=== PATIENT | male | born 1965 | race Caucasian/White ===

== ENCOUNTER 2016-08-30 14:00 | Emergency (ER) | payer OTHER ==
[2016-08-30 14:04] VITALS: BP 145/94
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
== END 2016-08-30 15:24 | disposition home or self-care (01) ==
LOC: LL.ED 14:00
DX: S99.921A Unspecified injury of right foot, initial encounter (principal); X58.XXXA Exposure to other specified factors, initial encounter
CPT/HCPCS: 29515; 73610-RT; 73630-RT; 99283